=== PATIENT | male | born 1955 | race Caucasian/White ===

== ENCOUNTER → 2019-06-05 11:47 | Outpatient (CLI) | payer OTHER, MEDICARE, SELFPAY ==
[2019-06-05 12:08] LABS: Hematocrit 43.3 % (41-53); Hemoglobin 14.5 g/dL (13.5-17.5); Mean Corpuscular HGB Conc 33.5 % (30-36); Mean Corpuscular Volume 77.7 fL (80-100); Platelet Count 241 X10^3/uL (150-400); Red Blood Cell Count 5.58 X10^6/uL (4.5-5.9); Red Cell Distribution Width 14.6 % (11.6-14.8); White Blood Cell Count 5.8 X10^3/uL (4.5-11.0)
[2019-06-05 12:44] LABS: Alanine Aminotransferase 21 IU/L (<50); Albumin 4.9 g/dL (3.5-5.0); Albumin Globulin Ratio 1.7 (1.0-2.8); Alkaline Phosphatase 44 U/L (38-126); Aspartate Aminotransferase 25 IU/L (17-59); Bilirubin Total 0.6 mg/dL (0.2-1.3); Blood Urea Nitrogen 18 mg/dL (9-20); Carbon Dioxide 30 mmol/L (22-32); Chloride 100 mmol/L (98-107); Cholesterol 273 mg/dL (140-199); Estimated Glomerular Filt Rate > 60.0 mL/min (>60); Globulin 2.9 g/dL (1.7-4.1); Glucose 106 mg/dL (80-110); HDL Cholesterol 53 mg/dL (40-60); HEMOLYSIS < 15 (0-50); LDL Cholesterol Calculated 199 mg/dL (<100); Potassium 4.6 mmol/L (3.4-5.1); Sodium 139 mmol/L (137-145); Total Protein 7.8 g/dL (6.3-8.2); Triglycerides 105 mg/dL (35-150)
[2019-06-05 15:54] LABS: Creatinine Urine Random 34.4 mg/dL
[2019-06-05 15:57] LABS: Microalbumi Creatinin Ratio Ur 17.4 ug/mg CR (<30); Microalbumin Urine Random < 0.6 mg/dL (0-1.6)
== END ==
PROVIDERS: Visit Provider Nurse Practitioner Family
DX: Z13.6 Encounter for screening for cardiovascular disorders (principal); I10 Essential (primary) hypertension
CPT/HCPCS: 36415; 80053; 80061; 82043; 82570; 85027

== ENCOUNTER 2019-06-25 06:40 | Day surgery (SDC) | payer OTHER, MEDICARE, SELFPAY ==
[2019-06-25] VITALS (9 sets, daily range): BP systolic 107–152; BP diastolic 70–82; PULSE 46–62; RESP 10–18; TEMP 36.2–37.5; O2SAT 93–96; BMI 27.8
--- NOTE | 2019-06-25 | PATH_ITS ---
[facility] Accession Number: [id number] . 01 Material submitted: . PART A: colon - ASCENDING COLON POLYP PART B: colon - COLON POLYP AT 15 CM . 02 Diagnosis: A. Ascending Colon, Polyp: Tubular adenoma. . B. Colon at 15 cm, Polyp: Tubular adenoma. V 06/26/2019 1509 Local . 02 Electronically signed: . Petey Ingram MD, PhD, Pathologist NPI- [id number] . 01 Gross description: . Part A: ASCENDING COLON POLYP: Received in formalin is 1 fragment(s) of law, soft tissue measuring 0.3 x 0.2 x 0.2 cm submitted entirely in 1 cassette(s) Part B: COLON POLYP AT 15 CM: Received in formalin are 2 fragment(s) of law, soft tissue measuring 0.6 x 0.2 x 0.2 cm to 0.3 x 0.2 x 0.1 cm submitted entirely in 1 cassette(s) /QBJ 06/25/2019 2243 Local . 02 Pathologist provided ICD-10: D12.2, D12.6 . 02 CPT . 192701, [id number] Performed at: 01 [facility] [address], [place], [place] [id number] MD Tom White MD Phone: [phone] Performed at: 02 [facility] [address] [place], [place] [id number] MD Lolita Bender MD Phone: [phone]
--- NOTE | 2019-06-25 07:57 | PM.HP.1 ---
History of Present Illness History of Present Illness Date Patient Seen: 06/25/19 Time Patient Seen: 07:49 Chief complaint: [id number] Narrative: Patient is a gentleman here has been having rectal bleeding and is for colonoscopy. His prep went fine. Patient History Medical History Colon polyps (Acute 2013) Essential hypertension (Acute 2014) Measles (Resolved) Mumps (Resolved) Rectal bleed (Acute 08/2018) Rheumatic fever (Resolved) Surgical History Anesthesia (Resolved) Femur fracture (Resolved ~1980) Family & Social History Social History: household members spouse Tobacco & Substance use: Smoking Status Former smoker alcohol intake current Meds Home Medications and Allergies Home Medications Medication Instructions Recorded Confirmed Type EHT PO DAILY 04/30/19 05/22/19 History Magnesium PO DAILY 04/30/19 05/22/19 History Youth Factor PO DAILY 04/30/19 05/22/19 History hydrochlorothiazide 12.5 mg capsule 12.5 mg PO DAILY 04/30/19 06/25/19 History lisinopril 20 mg tablet 20 mg PO DAILY 04/30/19 06/25/19 History omega-3 fatty acids 1,000 mg 1,000 mg PO DAILY 04/30/19 05/22/19 History capsule Allergies Allergy/AdvReac Type Severity Reaction Status Date / Time No Known Drug Allergies Allergy Verified 06/25/19 07:41 Review of Systems Review of Systems ROS Unobtainable: All systems reviewed & are unremarkable except as noted in HPI and below Exam Vital Signs (past 8 hours): - 06/25/19 07:32 Temperature 97.2 F L Pulse Rate 62 Respiratory Rate 15 Blood Pressure 152/82 H Pulse Oximetry 93 Oxygen Delivery Method Room Air Narrative Exam Narrative: Pleasant cooperative patient no apparent distress. Lungs are clear to auscultation. No rales or rhonchi. Heart regular rate and rhythm no murmur gallop. Abdomen is soft nontender without mass. No obvious hernias. Patient is alert and oriented x3. Assessment & Plan Assessment & Plan narrative: The patient for a screening colonoscopy. I have discussed the procedure with them. Risks of bleeding, perforation which would necessitate major operation, failure to find remove all lesions, the potential tattoo were all discussed. All questions were answered. They wished to proceed.
--- NOTE | 2019-06-25 08:00 | PM.PREOP ---
Pre-operative Note Interval Note History & Physical reviewed/Exam performed by Physician: Yes Changes to H&P: No ASA Class (for procedural sedation): II
[2019-06-25] MEDS: fentaNYL 250 MCG/5 ML INJ IV (08:04)
[2019-06-25] MEDS: SODIUM CHLORIDE 0.9% 1,000 ML 150 ML IV (08:12)
[2019-06-25] MEDS: MIDAZOLAM 5 MG/5 ML VIAL IV (08:30)
--- NOTE | 2019-06-25 08:39 | PM.OP.ENDO ---
Operative Date/Time/Diagnoses Date of procedure: 06/25/19 Time of procedure: 08:39 Pre-op diagnosis: Rectal bleeding. Last colonoscopy was 5 years ago Post-op diagnosis: same (Two small polyps) Procedure & Clinicians Study performed: Colonoscopy with cold biopsy Same procedure as scheduled: Yes Indications: Rectal bleeding Surgeon: Amandeep Cortez Procedure Notes SCOAP/Timeout: Performed Procedure in detail: The patient was placed in the left lateral decubitus position and underwent IV sedation directed by the surgeon consisting of fentanyl and Versed. Digital exam was remarkable for a moderately enlarged firm prostate without dominant mass. The scope was inserted and advanced through the rectum into the sigmoid, descending, transverse, and ascending colon. No lesions were seen. The cecum was reached identified by the ileocecal valve and the appendiceal opening. The scope was gradually brought out. Polyps were found at the ascending colon and at 15 cm from the anal verge. Both were a mm or 2 in size.. The scope ultimately was retroflexed in the rectum. The appearance was remarkable for internal hemorrhoids without ulceration. The scope was removed and the patient tolerated the procedure well. The prep was good Scope withdrawal time: 10 minutes(12 total) Sedation minutes: 26 Findings: internal hemorrhoids and polyp Specimen(s): other (Polyp) Complications: none Post-procedure Recommendations: Colonscopy in 5 years Follow up: as needed Disposition: PACU
== END 2019-06-25 09:44 | disposition home or self-care (01) ==
PROVIDERS: PCP Nurse Practitioner Family; Visit Provider Specialist
PROC: 0DJD8ZZ Inspection of Lower Intestinal Tract, Via Natural or Artificial Opening Endoscopic (ICD-10-PCS; CPT 45378; principal; 2019-06-25 07:45)
DX: K64.8 Other hemorrhoids (principal); I10 Essential (primary) hypertension; D12.2 Benign neoplasm of ascending colon; D12.6 Benign neoplasm of colon, unspecified
CPT/HCPCS: 45380; 99152; J2250; J3010

== ENCOUNTER → 2020-04-22 12:18 | Outpatient (CLI) | payer MEDICARE, SELFPAY ==
[2020-04-22 13:23] LABS: Hematocrit 43.6 % (41-53); Hemoglobin 14.4 g/dL (13.5-17.5); Mean Corpuscular Hemoglobin 26.2 PG (26-34); Mean Corpuscular Volume 79.3 fL (80-100); Platelet Count 216 X10^3/uL (150-400); Red Cell Distribution Width 14.9 % (11.6-14.8); White Blood Cell Count 5.6 X10^3/uL (4.5-11.0)
[2020-04-22 14:52] LABS: Alanine Aminotransferase 21 IU/L (<50); Albumin 4.6 g/dL (3.5-5.0); Albumin Globulin Ratio 1.4 (1.0-2.8); Alkaline Phosphatase 44 U/L (38-126); Aspartate Aminotransferase 26 IU/L (17-59); BUN Creatinine Ratio 22.6 (6-22); Bilirubin Total 0.5 mg/dL (0.2-1.3); Blood Urea Nitrogen 19 mg/dL (9-20); Calcium 9.5 mg/dL (8.4-10.2); Carbon Dioxide 29 mmol/L (22-32); Chloride 102 mmol/L (98-107); Cholesterol 268 mg/dL (140-199); Estimated Glomerular Filt Rate > 60.0 mL/min (>60); Globulin 3.3 g/dL (1.7-4.1); Glucose 94 mg/dL (80-110); HDL Cholesterol 45 mg/dL (40-60); HEMOLYSIS < 15 (0-50); LDL Cholesterol Calculated 197 mg/dL (<100); Potassium 3.8 mmol/L (3.4-5.1); Sodium 139 mmol/L (137-145); Total Protein 7.9 g/dL (6.3-8.2); Triglycerides 129 mg/dL (35-150)
[2020-04-22 15:44] LABS: Creatinine Urine Random 25.2 mg/dL
[2020-04-22 16:01] LABS: Microalbumin Urine Random < 0.6 mg/dL (0-1.6)
== END ==
PROVIDERS: PCP Nurse Practitioner Family; Referring Provider Nurse Practitioner Family; Visit Provider Nurse Practitioner Family
DX: E78.2 Mixed hyperlipidemia (principal); Z12.5 Encounter for screening for malignant neoplasm of prostate; I10 Essential (primary) hypertension
CPT/HCPCS: 36415; 80053; 80061; 82043; 82570; 85027; G0103

== ENCOUNTER → 2020-07-23 14:30 | Outpatient (CLI) | payer MEDICARE, SELFPAY ==
[2020-07-23 15:16] LABS: Add Manual Diff / Slide Review NO; Basophils Absolute Auto 100 /uL (0-100); Basophils Percent Auto 0.8 % (0-2); Eosinophils Absolute Auto 0 /uL (0-450); Eosinophils Percent Auto 0.5 % (2-4); Hematocrit 32.8 % (41-53); Hemoglobin 10.6 g/dL (13.5-17.5); Lymphocytes Absolute Auto 1600 /uL (1100-4500); Lymphocytes Percent Auto 20.1 % (25-40); Mean Corpuscular HGB Conc 32.2 % (30-36); Mean Corpuscular Hemoglobin 25.9 PG (26-34); Mean Corpuscular Volume 80.3 fL (80-100); Monocytes Absolute Auto 500 /uL (0-900); Monocytes Percent Auto 6.6 % (3-14); Neutrophils Absolute Auto 5800 /uL (1500-7000); Platelet Count 334 X10^3/uL (150-400); Red Blood Cell Count 4.08 X10^6/uL (4.5-5.9); Red Cell Distribution Width 14.7 % (11.6-14.8)
[2020-07-23 15:27] LABS: D Dimer 416 ng/mL (<230)
[2020-07-23 15:48] LABS: C-Reactive Protein Quant 0.7 mg/dL (<1.0)
[2020-07-23 16:39] LABS: Erythrocyte Sedimentation Rate 25 MM/HR (0-15)
== END ==
PROVIDERS: PCP Nurse Practitioner Family; Referring Provider Registered Nurse Diabetes Educator; Visit Provider Registered Nurse Diabetes Educator
DX: K92.1 Melena (principal); M79.89 Other specified soft tissue disorders
CPT/HCPCS: 36415; 85025; 85379; 85651; 86140

== ENCOUNTER → 2020-07-24 11:03 | Outpatient (CLI) | payer MEDICARE, SELFPAY ==
--- NOTE | 2020-07-24 11:06 | DI.US.S_ITS ---
PROCEDURE: US PERIPH VENOUS LOW EXTREM RT INDICATIONS: PAIN; ELEVATED D-DIMER TECHNIQUE: Real-time imaging, as well as color and pulse Doppler interrogation, were performed of the lower extremity deep veins from the inguinal ligament to the popliteal fossa. COMPARISON: None. FINDINGS: The common femoral, femoral and popliteal veins are normally compressible, and free of intraluminal thrombus. Color and pulse Doppler demonstrate normal phasic intraluminal flow. There is normal augmentation response to distal compression maneuver. IMPRESSION: Negative right lower extremity duplex venous ultrasound for DVT. Dictated by: Anselmo Bernstein M.D. on 07/24/2020 at 12:01 Approved by: Anselmo Bernstein M.D. on 07/24/2020 at 12:02
== END ==
PROVIDERS: PCP Nurse Practitioner Family; Referring Provider Registered Nurse Diabetes Educator; Visit Provider Registered Nurse Diabetes Educator
DX: M79.606 Pain in leg, unspecified (principal); R79.89 Other specified abnormal findings of blood chemistry
CPT/HCPCS: 93971

== ENCOUNTER → 2020-09-16 12:02 | Outpatient (CLI) | payer MEDICARE, SELFPAY ==
[2020-09-16 12:40] LABS: Hemoglobin 8.3 g/dL (13.5-17.5); Mean Corpuscular HGB Conc 30.9 % (30-36); Mean Corpuscular Hemoglobin 20.2 PG (26-34); Mean Corpuscular Volume 65.3 fL (80-100); Platelet Count 434 X10^3/uL (150-400); Red Blood Cell Count 4.14 X10^6/uL (4.5-5.9); Red Cell Distribution Width 20.1 % (11.6-14.8); White Blood Cell Count 8.6 X10^3/uL (4.5-11.0)
[2020-09-16 12:49] LABS: Alanine Aminotransferase 13 IU/L (<50); Albumin 4.5 g/dL (3.5-5.0); Albumin Globulin Ratio 1.4 (1.0-2.8); Alkaline Phosphatase 80 U/L (38-126); Aspartate Aminotransferase 21 IU/L (17-59); BUN Creatinine Ratio 14.3 (6-22); Bilirubin Total 0.3 mg/dL (0.2-1.3); Blood Urea Nitrogen 11 mg/dL (9-20); Calcium 9.1 mg/dL (8.4-10.2); Carbon Dioxide 24 mmol/L (22-32); Chloride 103 mmol/L (98-107); Cholesterol 175 mg/dL (140-199); Estimated Glomerular Filt Rate > 60.0 mL/min (>60); Globulin 3.2 g/dL (1.7-4.1); Glucose 100 mg/dL (80-110); HDL Cholesterol 48 mg/dL (40-60); HEMOLYSIS < 15 (0-50); LDL Cholesterol Calculated 108 mg/dL (<100); Potassium 4.1 mmol/L (3.4-5.1); Sodium 136 mmol/L (137-145); Total Protein 7.7 g/dL (6.3-8.2); Triglycerides 95 mg/dL (35-150)
[2020-09-16 12:56] LABS: HEMOLYSIS < 15 (0-50)
[2020-09-16 12:57] LABS: Iron < 10 ug/dL (49-181)
[2020-09-16 13:07] LABS: Percent Iron Saturation 2 % (20-50); Total Iron Binding Capacity 443 ug/dL (261-462); Transferrin 329 mg/dL (206-381)
[2020-09-16 13:21] LABS: Ferritin 5 ng/mL (18-464)
[2020-09-16 16:04] LABS: Creatinine Urine Random 18.3 mg/dL
[2020-09-16 16:13] LABS: Microalbumin Urine Random < 0.6 mg/dL (0-1.6)
--- NOTE | 2020-10-05 10:26 | ONC.MSW ---
Description: New Referral Navigation Reason for Referral: Anemia Activity: Reviewed referral for acuity, medical status, and immediate needs. Forwarded to scheduling for next available initial consult time.
== END ==
PROVIDERS: PCP Nurse Practitioner Family; Referring Provider Nurse Practitioner Family; Visit Provider Nurse Practitioner Family
DX: R71.8 Other abnormality of red blood cells (principal); I10 Essential (primary) hypertension; E78.2 Mixed hyperlipidemia
CPT/HCPCS: 36415; 80053; 80061; 82043; 82570; 82728; 83540; 83550; 85027

== ENCOUNTER → 2021-03-15 15:45 | Outpatient (CLI) | payer MEDICARE, SELFPAY ==
[2021-03-15 17:09] LABS: Add Manual Diff / Slide Review NO; Basophils Absolute Auto 100 /uL (0-100); Eosinophils Absolute Auto 300 /uL (0-450); Eosinophils Percent Auto 2.8 % (2-4); Hematocrit 42.3 % (41-53); Lymphocytes Absolute Auto 2500 /uL (1100-4500); Lymphocytes Percent Auto 28.1 % (25-40); Mean Corpuscular HGB Conc 33.1 % (30-36); Mean Corpuscular Hemoglobin 25.7 PG (26-34); Mean Corpuscular Volume 77.8 fL (80-100); Monocytes Absolute Auto 800 /uL (0-900); Monocytes Percent Auto 9.4 % (3-14); Neutrophils Absolute Auto 5300 /uL (1500-7000); Neutrophils Percent Auto 58.7 % (50-75); Platelet Count 223 X10^3/uL (150-400); Red Blood Cell Count 5.44 X10^6/uL (4.5-5.9); Red Cell Distribution Width 16.8 % (11.6-14.8)
[2021-03-15 17:30] LABS: HEMOLYSIS < 15 (0-50); Iron 55 ug/dL (49-181)
[2021-03-15 17:41] LABS: Percent Iron Saturation 15 % (20-50); Total Iron Binding Capacity 370 ug/dL (261-462); Transferrin 313 mg/dL (206-381)
== END ==
PROVIDERS: PCP Nurse Practitioner Family; Referring Provider Surgery; Visit Provider Surgery
DX: D50.9 Iron deficiency anemia, unspecified (principal); K64.8 Other hemorrhoids
CPT/HCPCS: 36415; 83540; 83550; 85025; 99212

== ENCOUNTER → 2021-12-15 13:10 | Outpatient (CLI) | payer MEDICARE, SELFPAY ==
[2021-12-15 13:56] LABS: Hematocrit 41.5 % (41-53); Hemoglobin 13.9 g/dL (13.5-17.5); Mean Corpuscular HGB Conc 33.4 % (30-36); Mean Corpuscular Hemoglobin 25.7 PG (26-34); Mean Corpuscular Volume 76.8 fL (80-100); Platelet Count 218 X10^3/uL (150-400); Red Cell Distribution Width 16.3 % (11.6-14.8); White Blood Cell Count 7.9 X10^3/uL (4.5-11.0)
[2021-12-15 14:14] LABS: HEMOLYSIS < 15 (0-50); Iron 164 ug/dL (49-181)
[2021-12-15 14:21] LABS: Alanine Aminotransferase 20 IU/L (<50); Albumin 4.7 g/dL (3.5-5.0); Albumin Globulin Ratio 1.6 (1.0-2.8); Alkaline Phosphatase 53 U/L (38-126); Aspartate Aminotransferase 26 IU/L (17-59); BUN Creatinine Ratio 24.1 (6-22); Bilirubin Total 0.7 mg/dL (0.2-1.3); Blood Urea Nitrogen 20 mg/dL (9-20); Calcium 9.3 mg/dL (8.4-10.2); Carbon Dioxide 29 mmol/L (22-32); Chloride 102 mmol/L (98-107); Cholesterol 224 mg/dL (140-199); Estimated Glomerular Filt Rate > 60 mL/min (>60); Glucose 98 mg/dL (80-110); HDL Cholesterol 59 mg/dL (40-60); HEMOLYSIS < 15 (0-50); LDL Cholesterol Calculated 149 mg/dL (<100); Sodium 139 mmol/L (137-145); Total Protein 7.7 g/dL (6.3-8.2); Triglycerides 78 mg/dL (35-150)
[2021-12-15 14:24] LABS: Percent Iron Saturation 38 % (20-50); Total Iron Binding Capacity 432 ug/dL (261-462); Transferrin 315 mg/dL (206-381)
[2021-12-15 14:48] LABS: Ferritin 14 ng/mL (18-464)
== END ==
PROVIDERS: PCP Registered Nurse Diabetes Educator; Referring Provider Nurse Practitioner Family; Visit Provider Nurse Practitioner Family
DX: D50.9 Iron deficiency anemia, unspecified (principal); I10 Essential (primary) hypertension; E78.2 Mixed hyperlipidemia; Z13.6 Encounter for screening for cardiovascular disorders; Z00.00 Encounter for general adult medical examination without abnormal findings
CPT/HCPCS: 36415; 80053; 80061; 82728; 83540; 83550; 85027

== ENCOUNTER → 2023-10-03 12:13 | Outpatient (CLI) | payer MEDICARE, SELFPAY ==
[2023-10-03 12:53] LABS: Hematocrit 42.4 % (41-53); Hemoglobin 14.1 g/dL (13.5-17.5); Mean Corpuscular HGB Conc 33.3 % (30-36); Mean Corpuscular Hemoglobin 26.6 PG (26-34); Mean Corpuscular Volume 79.7 fL (80-100); Platelet Count 236 X10^3/uL (150-400); Red Blood Cell Count 5.32 X10^6/uL (4.5-5.9); Red Cell Distribution Width 14.7 % (11.6-14.8); White Blood Cell Count 5.6 X10^3/uL (4.5-11.0)
[2023-10-03 13:35] LABS: HEMOLYSIS 17 (0-50); Iron 135 ug/dL (49-181)
[2023-10-03 13:45] LABS: Alanine Aminotransferase 19 IU/L (<50); Albumin 4.7 g/dL (3.5-5.0); Albumin Globulin Ratio 1.3 (1.0-2.8); Alkaline Phosphatase 40 U/L (38-126); Aspartate Aminotransferase 31 IU/L (17-59); BUN Creatinine Ratio 21.7 (6-22); Bilirubin Total 0.7 mg/dL (0.2-1.3); Blood Urea Nitrogen 18 mg/dL (9-20); Calcium 9.6 mg/dL (8.4-10.2); Carbon Dioxide 31 mmol/L (22-32); Chloride 102 mmol/L (98-107); Cholesterol 268 mg/dL (140-199); Estimated Glomerular Filt Rate > 60 mL/min (>60); Globulin 3.5 g/dL (1.7-4.1); Glucose 99 mg/dL (80-110); HDL Cholesterol 59 mg/dL (40-60); HEMOLYSIS < 15 (0-50); LDL Cholesterol Calculated 184 mg/dL (<100); Potassium 4.1 mmol/L (3.4-5.1); Sodium 138 mmol/L (137-145); Total Protein 8.2 g/dL (6.3-8.2); Triglycerides 127 mg/dL (35-150)
[2023-10-03 13:47] LABS: Percent Iron Saturation 40 % (20-50); Total Iron Binding Capacity 336 ug/dL (261-462); Transferrin 281 mg/dL (206-381)
[2023-10-03 14:16] LABS: Ferritin 33 ng/mL (18-464)
== END ==
PROVIDERS: PCP Registered Nurse Diabetes Educator; Referring Provider Registered Nurse Diabetes Educator; Visit Provider Registered Nurse Diabetes Educator
DX: E78.5 Hyperlipidemia, unspecified (principal); D64.9 Anemia, unspecified; I10 Essential (primary) hypertension
CPT/HCPCS: 36415; 80053; 80061; 82728; 83540; 83550; 85027

== ENCOUNTER 2024-11-06 11:09 | Day surgery (SDC) | payer MEDICARE, SELFPAY ==
[2024-11-06 11:54] VITALS: BP 186/85; PULSE 60; RESP 14; TEMP 36.1; O2SAT 96
--- NOTE | 2024-11-06 12:04 | P.HP_ITS ---
History of Present Illness History of Present Illness Date Patient Seen: 11/06/24 Chief complaint: SDC Narrative: History of colon polyps PFS Medical History Dyslipidemia History of basal cell carcinoma (BCC) Closed left forearm fracture Iron deficiency anemia Leg length discrepancy Internal hemorrhoids Microcytosis Routine eye exam Mixed hyperlipidemia Encounter for screening for malignant neoplasm of prostate Screening for AAA (aortic abdominal aneurysm) Rheumatic fever Mumps Measles Rectal bleed (08/2018) Colon polyps (2013) Essential hypertension (2014) Surgical History History of colonoscopy Anesthesia Femur fracture (~1980) Social History marital status: household members: spouse occupational status: employed Smoking Status: Former smoker Tobacco: How many years used: 3 second hand exposure: No alcohol intake: current substance use type: does not use Meds Home Medications and Allergies Home Medications Medication Instructions Recorded Confirmed Type omega-3 fatty acids 1,000 mg 1,000 mg PO DAILY 04/30/19 06/04/24 History capsule (Fish Oil Concentrate) pneumoc 20-noe conj-dip cr(PF) 0.5 0.5 ml IM ONCE #0.5 mL 04/04/23 06/04/24 Rx mL IM syringe (Prevnar 20 (PF)) varicella-zoster glycoE [id number] 0.5 ml IM ONCE #1 ea 04/04/23 06/04/24 Rx adj(PF) 50 mcg/0.5 mL IM susp, kit (Shingrix (PF)) sodium,potassium,mag sulfates 17.5 See Rx Instructions PO .COMPLEX 08/30/24 Rx gram-3.13 gram-1.6 gram oral soln #354 mL (Suprep Bowel Prep Kit) hydrochlorothiazide 12.5 mg capsule 12.5 mg PO DAILY #90 caps 10/14/24 11/06/24 Rx lisinopril 30 mg tablet 30 mg PO DAILY #90 tabs 10/14/24 11/06/24 Rx Allergies Allergy/AdvReac Type Severity Reaction Status Date / Time No Known Drug Allergies Allergy Verified 11/06/24 11:53 Exam Vital Signs (past 8 hours): - 11/06/24 11:54 Temperature 96.9 F L Pulse Rate 60 Respiratory Rate 14 Blood Pressure 186/85 H Pulse Oximetry 96 Oxygen Delivery Method Room Air Oxygen Delivery Method Room Air Narrative Exam Narrative: Oropharynx free of lesions Chest clear to auscultation percussion Cardiac exam reveals no S3 or murmur Objective Labs 11/06/24 11:25 Assessment & Plan Assessment & Plan narrative: History of colon polyps need for follow-up colonoscopy. Risks, benefits, alternatives have been explained. Time-Based Coding :: [TOTAL MINUTES] spent with patient and on the chart (including review of chart, obtaining history, exam, reviewing outside data, placing orders, documenting exam and treatment plan, and counseling patient) on [DATE]. [employer] Document charge(s): No
--- NOTE | 2024-11-06 12:05 | PM.OP.COLON ---
Operative Date/Time/Diagnoses Date of procedure: 11/06/24 Pre-op diagnosis: See indication and findings Procedure & Clinicians Study performed: Colonoscopy Same procedure as scheduled: Yes Indications: Abdominal pain and screening Surgeon: Jorge Alberto Jacobs Procedure Notes Procedure in detail: After informed consent was obtained the patient was placed in left lateral decubitus position. Video colonoscope was introduced the rectum slowly advanced cecum. Preparation was good. On slow withdrawal mucosa was carefully examined. The scope was removed. The patient tolerated procedure well. Blood loss none Complications none Sedation mac Findings 1. Scattered sigmoid diverticulosis 2. Otherwise negative colonoscopy to cecum Patient should have follow-up colonoscopy due to history of polyps in 5 years
[2024-11-06] MEDS: LACTATED RINGERS 1,000 ML 42 ML IV (12:14)
[2024-11-06 12:40] LABS: Alanine Aminotransferase 21 IU/L (<50); Albumin 4.9 g/dL (3.5-5.0); Albumin Globulin Ratio 1.6 (1.0-2.8); Alkaline Phosphatase 44 U/L (38-126); Aspartate Aminotransferase 33 IU/L (17-59); BUN Creatinine Ratio 24.4 (6-22); Bilirubin Total 0.9 mg/dL (0.2-1.3); Blood Urea Nitrogen 21 mg/dL (9-20); Calcium 9.5 mg/dL (8.4-10.2); Carbon Dioxide 32 mmol/L (22-32); Chloride 100 mmol/L (98-107); Cholesterol 285 mg/dL (140-199); Estimated Glomerular Filt Rate > 60 mL/min (>60); Glucose 82 mg/dL (70-99); HDL Cholesterol 71 mg/dL (40-60); HEMOLYSIS 40 (0-50); LDL Cholesterol Calculated 198 mg/dL (<100); Potassium 4.1 mmol/L (3.4-5.1); Sodium 143 mmol/L (137-145); Total Protein 7.9 g/dL (6.3-8.2); Triglycerides 79 mg/dL (35-150)
[2024-11-06 12:58] VITALS: PULSE 60; RESP 14; TEMP 36.2; O2SAT 98
[2024-11-06 13:07] VITALS: BP 146/84; PULSE 58; RESP 17; TEMP 36.4; O2SAT 96
[2024-11-06 13:15] VITALS: BP 156/95; PULSE 61; RESP 18; TEMP 36.4; O2SAT 95
[2024-11-06 13:30] VITALS: BP 149/89; PULSE 63; RESP 15; TEMP 36.4; O2SAT 98
== END 2024-11-06 13:40 | disposition home or self-care (01) ==
PROVIDERS: PCP Registered Nurse Diabetes Educator; Referring Provider Internal Medicine Gastroenterology; Visit Provider Internal Medicine Gastroenterology
PROC: 0DJD8ZZ Inspection of Lower Intestinal Tract, Via Natural or Artificial Opening Endoscopic (ICD-10-PCS; CPT 45378; principal; 2024-11-06 13:00)
DX: R10.9 Unspecified abdominal pain (principal); Z86.0100 Personal history of colon polyps, unspecified; K57.30 Diverticulosis of large intestine without perforation or abscess without bleeding
CPT/HCPCS: 45378; 36415; 80053; 80061; J2704